=== PATIENT | female | born 1975 | race Asian ===

== ENCOUNTER 2017-10-11 11:30 | Outpatient (RCR) | payer OTHER, SELFPAY ==
--- NOTE | 2017-08-28 09:47 | HP.OTEVAL ---
Patient's Visit Information SHABANA CARRERA is a 42 year old F, referred to Occupational Therapy by Out of Town Doctor, with a diagnosis of right RF prox. phal.fx. Date of Evaluation: 08/28/17 Occupational Therapist: Abbie Del Rio, OTR/L, CHT - Subjective Subjective: NPt states on July 03, 2017 she hit her left RF on door frame and suffered a proximal phalanx fx. pt did go to urgent care and they did dx fx. pt states she was splinted and ref'd to Dr. 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 - Pain left RF 4 Pain Intensity Range: 0, 6 - ROM MP: left 0/95 right 0/90 PIP: left 0/56 right 0/105 DIP: left 0/15 right 0/75 ROM Comments: pt demo limited left composite fist - Strength Wrapper Hands Sprayer: left 30# right 75# - Edema PIP: left 6.5 right 5.0 - Sensation Sensation Comments: denies - DASH-Disabilities of Arm, Shoulder& Hand DASH Sum: 56 - Goals Goal:: pt will demo a incrase in left functional veneer marker strength to 50# or greater to increase pts ind.with BADLS and IADLs by D/c Goal:: PT will demo gains of PIP flex to 100 degrees to have the ability to form a composite fist to return to her PLOF with BADLS and IADLS by D/C Goal:: pt will report pain no greater than 2/10 with use of left hand with BADLS and IADLS by d/c - Rehabilitation General Assessment: pt demo with limited left RF ROM and decrease in left hand functional strength. pt demo need for skilled OT services to 2-3x week for 6 weeks. Treatment will foucs on ROM and progress to PRE to return pt to PLOF Rehabilitation Potential: Excellent - Anticipated Interventions Anticipated Interventions: A/AAROM/PROM, Strengthening, Triggerpoint Release, Modalities, Orthoses - Visit Plan Frequency: 2-3x /Week Duration: 6 Weeks TEXT: Thank you for the opportunity to evaluate your patient. For Medicare and Medicare HMO plans, please review the plan of care and approve it. It will need to be FAXED BACK to us at [phone] for Medicare purposes. Please let me know if there are questions or concerns regarding this plan of care. Physician Signature: Date:
--- NOTE | 2017-12-10 10:42 | HP.OTDCNRP_ITS ---
HP - Discharge Summary - Patient Information SHABANA CARRERA was seen in my office for initial evaluation on 08/28/17. The following Plan of Care was established for this patient: Initial Frequency: 2-3x /Week Initial Duration: 6 Weeks Plan: one more visit - Anticipated Interventions Anticipated Interventions: A/AAROM/PROM, Strengthening, Triggerpoint Release, Modalities, Orthoses This patient was last seen in our office 09/18/17. Pertinent comments regarding their Occupational therapy will appear below: Pt was seen for 16 visit in OT. She did well and completed her OT sessions. pt was D/C with HEP. 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 At this point I will be discontinuing this patient from occupational therapy. I would be happy to see this patient again in the future if found appropriate by the physician. Thank you! Abbie Del Rio, OTR/L, CHT
== END 2017-10-11 19:00 | disposition home or self-care (01) ==
LOC: OT 11:30
PROVIDERS: Family Provider Family Medicine; PCP Family Medicine
DX: S62.664D Nondisplaced fracture of distal phalanx of right ring finger, subsequent encounter for fracture with routine healing (principal)
CPT/HCPCS: 97035; 97110; 97140; 97166; 97530

== ENCOUNTER → 2020-10-12 10:01 | Outpatient (CLI) | payer OTHER, SELFPAY ==
[2020-10-12 12:30] LABS: ALB/GLOB Ratio 1.4 RATIO (0.9-2.4); AST(SGOT) 18 U/L (15-37); Alanine Aminotransfer ALT/SGPT 20 U/L (13-56); Albumin, Serum 4.3 g/dL (3.2-5.0); Alkaline Phosphatase 47 U/L (45-117); Anion Gap 7 (5-15); BUN 19 mg/dL (7-18); BUN/Creat Ratio 30.4 RATIO (10-20); Calcium,Total 8.6 mg/dL (8.5-10.1); Chloride 104 mmol/L (98-107); Cholesterol 225 mg/dL (200); Creatinine, Serum 0.63 mg/dL (0.55-1.02); EST Glomerular Filtration Rate 109 mL/min (>60); Est Glom Filt Rate - Afr Amer 132 mL/min (>60); Globulin 3.1 g/dL (2.2-4.2); Glucose 87 mg/dL (74-106); High Density Lipoprotein 89 mg/dL; Potassium 4.1 mmol/L (3.5-5.1); Protein, Total 7.4 g/dL (6.4-8.2); Sodium Level 137 mmol/L (136-145); Triglycerides 69 mg/dL; Very Low Density Lipoprotein 14 mg/dL (5-40)
== END ==
PROVIDERS: PCP Family Medicine; Referring Provider Family Medicine; Visit Provider Family Medicine
DX: Z00.00 Encounter for general adult medical examination without abnormal findings (principal); R51.9 Headache, unspecified
CPT/HCPCS: 36415; 80053; 80061

== ENCOUNTER → 2020-11-08 10:13 | Outpatient (CLI) | payer OTHER, SELFPAY ==
--- NOTE | 2020-11-08 10:19 | BI_ITS ---
MAMMOGRAPHY - BILATERAL SCREENING REASON FOR EXAM: Female, 45 years old. Routine annual screening examination. PERTINENT HISTORY: Non-contributory. TECHNIQUE: Digital bilateral breast korin (3D mammographic acquisition) in the CC and MLO projections. 2-D mediolateral oblique (MLO) and craniocaudad (CC) views of both breasts were obtained. CAD: Full Field Digital Mammography with Computer Added Detection was performed. COMPARISON: None. Baseline examination. FINDINGS: Breast Composition: The breasts are extremely dense, which lowers the sensitivity of mammography. There are no dominant masses or suspicious calcifications. No other significant abnormalities are identified. BI/SCRN MAMM (CAD)W/KORIN BILAT IMPRESSION: Negative screening mammogram. Yearly followup mammogram recommended. (A) ASSESSMENT CATEGORY: BIRADS Category 2: Benign. A letter regarding these results will be sent to the patient by the facility within 30 days. Approximately 10% of breast cancers are not detected by mammography. A normal mammogram should not delay biopsy of a clinically suspicious abnormality. [id number] Electronically Signed: Adi Montes MD at 11:35 EDT , Service support ,
== END ==
PROVIDERS: PCP Family Medicine; Referring Provider Family Medicine; Visit Provider Family Medicine
DX: Z12.31 Encounter for screening mammogram for malignant neoplasm of breast (principal)
CPT/HCPCS: 77063; 77067

== ENCOUNTER → 2023-02-26 | Outpatient (CLI) | payer OTHER, SELFPAY ==
[2023-02-26 16:48] LABS: ALB/GLOB Ratio 1.2 RATIO (0.9-2.4); AST(SGOT) 13 U/L (15-37); Alanine Aminotransfer ALT/SGPT 12 U/L (13-56); Albumin, Serum 3.8 g/dL (3.2-5.0); Alkaline Phosphatase 58 U/L (45-117); Anion Gap 4 (5-15); BUN 27 mg/dL (7-18); BUN/Creat Ratio 42.7 RATIO (10-20); Calcium,Total 8.9 mg/dL (8.5-10.1); Chloride 107 mmol/L (98-107); Creatinine, Serum 0.63 mg/dL (0.55-1.02); EST Glomerular Filtration Rate 107 mL/min (>60); Est Glom Filt Rate - Afr Amer 129 mL/min (>60); Globulin 3.1 g/dL (2.2-4.2); Glucose 105 mg/dL (74-106); Potassium 3.7 mmol/L (3.5-5.1); Protein, Total 6.9 g/dL (6.4-8.2); Sodium Level 138 mmol/L (136-145)
--- OUTSIDE RECORDS SUMMARY | 2023-02-26 17:35 | XMS RPT_ITS | CCD ---
Author Name Unknown Address [address] [place] [address] Organization [facility] Care Team Providers Care Surgical Scrub Tech Name Role Phone KAUSHAL AHSAN [facility] Unavailable Results Test Name Value Interpretation Reference Range Facil ity Encounters Encounter Date Encounter Type Care Provider Facility Start: 01-28-2023 End: 01-28-2023 ambulatory AHSAN EASLEY Facility:[facility] Payers Date Payer Category Payer [employer] ( and others ) [id number] Progress note 01-28-2023 Note Date & Type Note Facility 01-28-2023 Note HNO ID: [id number] Author: Bartolo Harris APRN.DOOR TECHNICIAN Service: ? Author Type: Nurse Practitioner Type: Progress Notes Filed: 01/28/2023 3:44 PM Note Text: Subjective HPI Nontoxic-appearing female presents to urgent care with chief complaint of upper respiratory tract like infection. Duration of symptoms 3 days. Associated symptoms sore throat, nasal congestion, nasal discharge and nonproductive cough. Most prominent symptom today is cough. Patient denies the use of any rsfd-udo-wknchkn medications or home remedies for symptom management. Patient states recent sick contacts with similar signs and symptoms. Patient denies any productive cough, fever, chest pain, shortness of breath, pleuritic pain, rash, abdominal pain, nausea, vomiting or change in bowel or bladder habit. Past medical history prescription medication use allergies reviewed. BP 125/57 Pulse 98 Temp 36.7 ?C (98.1 ?F) Resp 18 Wt 52.1 kg (114 lb 12.8 oz) LMP 04/20/2017 (Approximate) SpO2 98% BMI 21.69 kg/m? .Patient presents with: Cough: Congestion x3 days PAST MEDICAL HISTORY Diagnosis Date NEGATIVE MEDICAL HISTORY PAST SURGICAL HISTORY Procedure Laterality Date PAST SURGICAL HISTORY OF 1995 removed tumor benign 10 yrs ago from ovary, uncertain which side ALLERGIES Patient has no known allergies. MEDICATIONS diphenhydrAMINE (BENADRYL) 25 mg capsule Take 2 capsules by mouth every 6 hours as needed. (Patient not taking: Reported on 01/28/2023) Dsgjbazsduldfrl-Idgtlulep-AD (BROMFED DM) 2-30-10 mg/5 mL syrup Take 5 mL by mouth four times daily as needed. (Patient not taking: Reported on 08/12/2017 ) FAMILY HISTORY Problem Relation Age of Onset Heart disease Mother Kidney Disease Father Social History Tobacco Use Smoking status: Never Smokeless tobacco: Never Substance Use Topics Alcohol use: No Drug use: No Review of Systems Constitutional: Negative for chills, fever and malaise/fatigue. HENT: Positive for congestion and sinus pain. Negative for ear discharge, ear pain and sore throat. Eyes: Negative for blurred vision, pain, discharge and redness. Respiratory: Positive for cough. Negative for hemoptysis, sputum production, shortness of breath, wheezing and stridor. Cardiovascular: Negative for chest pain. Gastrointestinal: Negative for abdominal pain, diarrhea, nausea and vomiting. Musculoskeletal: Negative for myalgias. Skin: Negative for itching and rash. Neurological: Negative for dizziness and headaches. Objective Physical Exam Constitutional: General: She is not in acute distress. Appearance: She is not diaphoretic. HENT: Head: Normocephalic. Jaw: No trismus, tenderness, swelling or pain on movement. Nose: Congestion present. Mouth/Throat: Mouth: Mucous membranes are moist. Pharynx: Oropharynx is clear. Uvula midline. No pharyngeal swelling, oropharyngeal exudate, posterior oropharyngeal erythema or uvula swelling. Eyes: Conjunctiva/sclera: Conjunctivae normal. Pupils: Pupils are equal, round, and reactive to light. Cardiovascular: Rate and Rhythm: Normal rate and regular rhythm. Heart sounds: Normal heart sounds. Pulmonary: Effort: Pulmonary effort is normal. No tachypnea, accessory muscle usage or respiratory distress. Breath sounds: Normal breath sounds. No stridor. No wheezing, rhonchi or rales. Abdominal: General: There is no distension. Palpations: Abdomen is soft. Tenderness: There is no abdominal tenderness. There is no guarding or rebound. Musculoskeletal: Cervical back: Normal range of motion and neck supple. No edema, erythema, rigidity or tenderness. No pain with movement. Normal range of motion. Lymphadenopathy: Cervical: No cervical adenopathy. Skin: General: Skin is warm and dry. Neurological: Mental Status: She is alert and oriented to person, place, and time. ASSESSMENT/PLAN: 1. Viral URI with cough - ICD9: 465.9, ICD10: J06.9 - Discussed viral etiology and rationale for treatment. - Symptomatic treatment with prn analgesia - Supportive care with fluids and rest No evidence of bacterial infection. Cough suppressant sent to pharmacy. Patient will follow up with primary care provider as needed. Patient was instructed to immediately proceed to emergency room for any new, worsening, or symptoms lasting longer than anticipated. The patient's clinical presentation is otherwise unremarkable at this time. Based on exam and clinical finding, the patient is stable for discharge. Plan of care was discussed with patient. Patient verbalizes understanding and agrees to plan of care. This note was generated using [employer] software. It may contain errors in wording, punctuation, or spelling. Bartolo Harris APRN.[facility] Summary Purpose Family History No Family History Records Found Advance Directives No Advanced Directives Records Found Additional Source Comments INFORMATION SOURCE (unrecogn ized section and content) FOR RECORDS PERTAINING TO PATIENTS WHO ARE OR HAVE BEEN ENROLLED IN A CHEMICAL DEPENDENCY/SUBSTANCEABUSE PROGRAM, SOME INFORMATION MAY BE OMITTED. This clinical summary was aggregated from multiple sources. Caution should be exercised in using it in the provision of clinical care. This summary normalizes information from multiple sources, and as a consequence, information in this document may materially change the coding, format and clinical context of patient data. In addition, data may be omitted in some cases. CLINICAL DECISIONS SHOULD BE BASED ON THE PRIMARY CLINICAL RECORDS. [employer] provides no warranty or guarantee of the accuracy or completeness of information in this document.
== END | disposition home or self-care (01) ==
LOC: BIMLAB 15:40
PROVIDERS: PCP Family Medicine; Referring Provider Family Medicine; Visit Provider Family Medicine
DX: B19.10 Unspecified viral hepatitis B without hepatic coma (principal)
CPT/HCPCS: 36415; 80053

== ENCOUNTER → 2023-03-02 | Outpatient (CLI) | payer OTHER, SELFPAY ==
--- NOTE | 2023-03-02 07:55 | US_ITS ---
EXAM: US ABDOMEN LIMITED, RIGHT UPPER QUADRANT CLINICAL INDICATION: hepatomegaly TECHNIQUE: Real-time ultrasound of the right upper quadrant with image documentation. COMPARISON: No relevant prior studies available. FINDINGS: LIVER: Normal. There is normal echotexture. No focal hepatic lesion. No intrahepatic biliary ductal dilation. GALLBLADDER: Normal. No shadowing gallstone. No gallbladder wall thickening is demonstrated. No pericholecystic fluid. Negative sonographic Garcia''s sign. COMMON BILE DUCT: Unremarkable as visualized. The proximal common bile duct is normal size. PANCREAS: Unremarkable as visualized. No focal abnormality is demonstrated in the pancreas. No pancreatic ductal dilatation. RIGHT KIDNEY: Normal. There is no hydronephrosis. No shadowing calculus. No focal lesion or perinephric collection is demonstrated. US/Liver IMPRESSION: Normal right upper quadrant ultrasound. Electronically Signed: Jorge Simental MD at 9:43 EST ,
--- OUTSIDE RECORDS SUMMARY | 2023-03-02 07:55 | XMS RPT_ITS | CCD ---
Author Name Unknown Address [address] [place] [address] Organization [facility] Care Team Providers Care Extension Agent Name Role Phone KAUSHAL AHSAN [facility] Unavailable Results Test Name Value Interpretation Reference Range Facil ity Encounters Encounter Date Encounter Type Care Provider Facility Start: 01-28-2023 End: 01-28-2023 ambulatory AHSAN EASLEY Facility:[facility] Payers Date Payer Category Payer [employer] ( and others ) [id number] Progress note 01-28-2023 Note Date & Type Note Facility 01-28-2023 Note HNO ID: [id number] Author: Bartolo Harris APRN.VEHICLE GLASS TECHNICIAN Service: ? Author Type: Nurse Practitioner Type: Progress Notes Filed: 01/28/2023 3:44 PM Note Text: Subjective HPI Nontoxic-appearing female presents to urgent care with chief complaint of upper respiratory tract like infection. Duration of symptoms 3 days. Associated symptoms sore throat, nasal congestion, nasal discharge and nonproductive cough. Most prominent symptom today is cough. Patient denies the use of any sfpm-zcr-slcumlb medications or home remedies for symptom management. [...] needed. (Patient not taking: Reported on 01/28/2023) Reaplyplxgejarm-Sqjlusing-SE (BROMFED DM) 2-30-10 mg/5 mL syrup Take [...] of care. This note was generated using [employer] software. It may contain errors in wording, punctuation, or spelling. Bartolo Harris APRN.[facility] Summary Purpose Family History No [...] BE BASED ON THE PRIMARY CLINICAL RECORDS. [employer] provides no warranty or guarantee of the accuracy or completeness of information in this document.
== END | disposition home or self-care (01) ==
PROVIDERS: PCP Family Medicine; Referring Provider Family Medicine; Visit Provider Family Medicine
DX: B19.10 Unspecified viral hepatitis B without hepatic coma (principal); K76.0 Fatty (change of) liver, not elsewhere classified
CPT/HCPCS: 76705

== ENCOUNTER → 2023-03-06 | Outpatient (CLI) | payer OTHER, SELFPAY ==
--- NOTE | 2023-03-06 15:15 | RAD_ITS ---
INDICATION: pain EXAMINATION/TECHNIQUE: X-RAY - XR Chest 2 Views COMPARISON: None. FINDINGS: The lungs are clear. The cardiomediastinal silhouette is unremarkable. No pleural effusion or pneumothorax. No acute osseous abnormalities. RAD/Chest PA and Lateral IMPRESSION: No acute radiographic abnormalities. Electronically Signed: Morales Silva MD at 23:58 EST ,
--- OUTSIDE RECORDS SUMMARY | 2023-03-06 16:45 | XMS RPT_ITS | CCD ---
Author Name Unknown Address [address] [place] [address] Organization [facility] Care Team Providers Care Sales Hunter Name Role Phone KAUSHAL AHSAN [facility] Unavailable Results Test Name Value Interpretation Reference Range Facil ity Encounters Encounter Date Encounter Type Care Provider Facility Start: 01-28-2023 End: 01-28-2023 ambulatory AHSAN EASLEY Facility:[facility] Payers Date Payer Category Payer [employer] ( and others ) [id number] Progress note 01-28-2023 Note Date & Type Note Facility 01-28-2023 Note HNO ID: [id number] Author: Bartolo Hraris APRN.REGIONAL FACILITIES MANAGER Service: ? Author Type: Nurse Practitioner Type: Progress Notes Filed: 01/28/2023 3:44 PM Note Text: Subjective HPI Nontoxic-appearing female presents to urgent care with chief complaint of upper respiratory tract like infection. Duration of symptoms 3 days. Associated symptoms sore throat, nasal congestion, nasal discharge and nonproductive cough. Most prominent symptom today is cough. Patient denies the use of any ocke-hia-wcyftih medications or home remedies for symptom management. [...] needed. (Patient not taking: Reported on 01/28/2023) Wrlacwdtbfqhpcl-Hpthfxcsr-EH (BROMFED DM) 2-30-10 mg/5 mL syrup Take [...] of care. This note was generated using [employer] software. It may contain errors in wording, punctuation, or spelling. Bartolo Harris APRN.[facility] Summary Purpose Family History No Family History [...] BE BASED ON THE PRIMARY CLINICAL RECORDS. [employer] provides no warranty or guarantee of the accuracy or completeness of information in this document.
== END | disposition home or self-care (01) ==
PROVIDERS: PCP Family Medicine; Referring Provider Family Medicine; Visit Provider Family Medicine
DX: R07.9 Chest pain, unspecified (principal)
CPT/HCPCS: 71046

== ENCOUNTER → 2023-03-28 | Outpatient (CLI) | payer OTHER, SELFPAY ==
--- NOTE | 2023-03-28 14:46 | CT_ITS ---
STUDY: CT ABDOMEN WITHOUT CONTRAST REASON FOR EXAM: Female, 47 years old. Upper abdominal pain RADIATION DOSAGE (If Supplied By Facility): CTDIvol = ( 5.16 ) mGy, DLP = ( 156.20 ) mGycm TECHNIQUE: Transaxial images were obtained without intravenous contrast, and without oral contrast. Sagittal and coronal images were reconstructed. Individualized dose optimization techniques were used for this CT. COMPARISON: Comparison is made with prior ultrasound of right upper quadrant dated March 02, 2023. FINDINGS: The visualized lung bases are unremarkable. The visualized portions of the heart are within normal limits. Findings suggestive of a 6.9 mm cyst in the anterior aspect of the right lobe of the liver. Normal gallbladder and extrahepatic biliary system. Normal spleen. Normal pancreas. Normal bilateral adrenal glands. Normal right kidney. Normal left kidney. Normal visualized stomach. Normal small intestine. Moderate amount of fecal material is seen in the colon. The appendix is visualized and appears normal. Normal abdominal aorta. Normal inferior vena cava. Normal retroperitoneum. Normal abdominal wall. Straightening of the normal lumbar lordosis. CT/Abdomen without IV Contrast IMPRESSION: Moderate amount of fecal material is seen in the colon. Findings suggestive of a 6.9 mm cyst in the anterior aspect of the right lobe of the liver. Electronically Signed: Adi Montes MD at 15:20 EST ,
--- OUTSIDE RECORDS SUMMARY | 2023-03-28 20:35 | XMS RPT_ITS | CCD ---
Author Name Unknown Address [address] [place] [address] Organization [facility] Care Team Providers Care Furnace Packer Name Role Phone KAUSHAL AHSAN [facility] Unavailable Results Test Name Value Interpretation Reference Range Facil ity Encounters Encounter Date Encounter Type Care Provider Facility Start: 01-28-2023 End: 01-28-2023 ambulatory AHSAN EASLEY Facility:[facility] Payers Date Payer Category Payer [employer] ( and others ) [id number] Progress note 01-28-2023 Note Date & Type Note Facility 01-28-2023 Note HNO ID: [id number] Author: Bartolo Harris APRN.SUPERINTENDENT POLICE Service: ? Author Type: Nurse Practitioner Type: Progress Notes Filed: 01/28/2023 3:44 PM Note Text: Subjective HPI Nontoxic-appearing female presents to urgent care with chief complaint of upper respiratory tract like infection. Duration of symptoms 3 days. Associated symptoms sore throat, nasal congestion, nasal discharge and nonproductive cough. Most prominent symptom today is cough. Patient denies the use of any okfh-zoo-zfoltdm medications or home remedies for symptom management. [...] needed. (Patient not taking: Reported on 01/28/2023) Keilwsqhjpvufzs-Eluvjcsml-SH (BROMFED DM) 2-30-10 mg/5 mL syrup Take [...] of care. This note was generated using [employer] software. It may contain errors in wording, punctuation, or spelling. Bartolo Harris APRN.[facility] Summary Purpose Family History No Family History [...] BE BASED ON THE PRIMARY CLINICAL RECORDS. [employer] provides no warranty or guarantee of the accuracy or completeness of information in this document.
== END | disposition home or self-care (01) ==
LOC: CT 14:45
PROVIDERS: PCP Family Medicine; Referring Provider Family Medicine; Visit Provider Family Medicine
DX: R10.10 Upper abdominal pain, unspecified (principal)
CPT/HCPCS: 74150